=== PATIENT | male | born 1970 | race Two or more races ===

== ENCOUNTER 2019-07-01 14:56 | Inpatient (IN) | payer OTHER ==
--- NOTE | 2019-07-01 15:35 | BHS.RME ---
Substance Use & Tx History - Substance Use History Alcohol Substance amount: beer: 10 x 24 ounce, Vodka: up to one pint Frequency of use: Daily Substance route: Oral Date of Last Use: 07/01/19 Physical/Psych/Mental Status - Behavior Eye Contact: Normal - Cooperativeness Cooperativeness: Cooperative - Thinking Thought Processes: Loosened - Physical Health Problems Is patient presently having any pain?: Yes (fell last night, struck left knee) Does patient presently have any injuries (include location): Yes (scraped left knee "real bad") Does patient currently have a fever: No CIWA Nausea/Vomitin-Mild Nausea/No Vomiting Muscle Tremors: 3 Anxiety: 2 Agitation: 2 Paroxysmal Sweats: No Perspiration Orientation: 0-Oriented Tacttile Disturbances: 0-None Auditory Disturbances: 2-Mild Harshness/Frighten Visual Disturbances: 2-Mild Sensitivity Headache: 0-None Present CIWA-Ar Total Score: 12
[2019-07-01 17:53] VITALS: BMI 35.1
--- NOTE | 2019-07-01 18:59 | HP ---
CIWA Score Nausea/Vomitin-Mild Nausea/No Vomiting Muscle Tremors: 3 Anxiety: 2 Agitation: 2 Paroxysmal Sweats: No Perspiration Orientation: 0-Oriented Tacttile Disturbances: 0-None Auditory Disturbances: 2-Mild Harshness/Frighten Visual Disturbances: 2-Mild Sensitivity Headache: 0-None Present CIWA-Ar Total Score: 12 - Admission Criteria OASAS Guidelines: Admission for Medically Managed Detox: Requires at least one of the followin. CIWA greater than 12 2. Seizures within the past 24 hours 3. Delirium tremens within the past 24 hours 4. Hallucinations within the past 24 hours 5. Acute intervention needed for co occurring medical disorder 6. Acute intervention needed for co occurring psychiatric disorder 7. Severe withdrawal that cannot be handled at a lower level of care (continued vomiting, continued diarrhea, abnormal vital signs) requiring intravenous medication and/or fluids 8. Patient presents the following: CIWA greater than 12 Admission Criteria Met: Admission criteria met Admitting History and Physical - Smoking History Smoking history: Current every day smoker Have you smoked in the past 12 months: Yes Aproximately how many cigarettes per day: 20 - Alcohol/Substance Use Hx Alcohol Use: Yes (reports drinking daily vodka.) Admission [facility] Chief Complaint: alcohol detox Allergies/Adverse Reactions: Allergies Allergy/AdvReac Type Severity Reaction Status Date / Time No Known Allergies Allergy Verified 07/01/19 18:53 History of Present Illness: 48 yo male with schizohrenia, DM, HTN, neuropathy, 2 episodes of pancreatitis, cirrhosis resident of an [facility] living, states he has been drinking continuously for the prior 6 months, requesting detox. Pt was brought in by sister. Pt states he feels like he is in withdrawal. Alcohol- 24 oz can 10 beers/day, vodka 1/2 pint/day. no h/o seizures/DT's denies other drugs Utox- neg, MANISH-0.45 ISTOP- neg for controlled substances - Ebola screening Have you traveled outside of the country in the last 21 days: No Have you had contact with anyone from an Ebola affected area: No Have you been sick,other than usual withdrawal symptoms: No Do you have a fever: No - Review of Systems Constitutional: Other (not feeling good) EENT: reports: No Symptoms Reported Respiratory: reports: No Symptoms reported Cardiac: reports: No Symptoms Reported GI: reports: No Symptoms Reported : reports: No Symptoms Reported Musculoskeletal: reports: No Symptoms Reported Integumentary: reports: No Symptoms Reported (knee scrape- left, hit corner of bed), Other Neuro: reports: No Symptoms reported Endocrine: reports: No Symptoms Reported Hematology: reports: No Symptoms Reported Psychiatric: reports: Depressed Patient History - Patient Medical History Hx Anemia: No Hx Asthma: No Hx Chronic Obstructive Pulmonary Disease (COPD): No Hx Cancer: No Hx Cardiac Disorders: No Hx Congestive Heart Failure: No Hx Hypertension: Yes Hx Hypercholesterolemia: Yes (PER HX--NO MEDS) Hx Pacemaker: No HX Cerebrovascular Accident: No Hx Seizures: No Hx Dementia: No Hx Diabetes: Yes Hx Gastrointestinal Disorders: Yes (h/o pancreatitis) Hx Liver Disease: Yes (cirrhosis) Hx Genitourinary Disorders: No Hx Sexually Transmitted Disorders: No Hx Renal Disease (ESRD): No Hx Thyroid Disease: No Hx Human Immunodeficiency Virus (HIV): No (NEGATIVE HX) Hx Hepatitis C: No Hx Depression: Yes Hx Suicide Attempt: Yes (1995) Hx Bipolar Disorder: Yes Hx Schizophrenia: Yes (schizophrenia) Other Medical History: neuropathy - Patient Surgical History Past Surgical History: Yes Hx Neurologic Surgery: No Hx Cataract Extraction: No Hx Cardiac Surgery: No Hx Lung Surgery: No Hx Breast Surgery: No Hx Breast Biopsy: No Hx Abdominal Surgery: Yes (LEFT INGUINAL HERNIA REPAIR IN THE ) Hx Appendectomy: No Hx Cholecystectomy: No Hx Genitourinary Surgery: No Hx Section: No Hx Orthopedic Surgery: Yes (DUE TO RIGHT WRIST FX IN 1986 OR 1987) Anesthesia Reaction: No - PPD History Documented Results: Negative w/o proof Date: 06/16/13 Results: 0mm - Smoking Cessation Smoking history: Current every day smoker Have you smoked in the past 12 months: Yes Aproximately how many cigarettes per day: 20 Cigars Per Day: 0 Hx Chewing Tobacco Use: No Initiated information on smoking cessation: Yes 'Breaking Loose' booklet given: 07/01/19 Admission Physical Exam BHS - Vital Signs Vital Signs: Vital Signs - 24 hr 07/01/19 17:49 Temperature 98.7 F Pulse Rate 75 Respiratory 18 Rate Blood Pressure 142/79 - Physical General Appearance: Yes: Anxious HEENTM: Yes: Within Normal Limits Respiratory: Yes: Within Normal Limits, Lungs Clear Neck: Yes: Within Normal Limits Cardiology: Yes: Within Normal Limits, Regular Rate Abdominal: Yes: Distended Musculoskeletal: Yes: Within Normal Limits Extremities: Yes: Within Normal Limits Neurological: Yes: Within Normal Limits Integumentary: Yes: Within Normal Limits Lymphatic: Yes: Within Normal Limits - Diagnostic (1) Depression Current Visit: Yes Status: Acute (2) Schizoaffective disorder Current Visit: Yes Status: Acute (3) Diabetes Current Visit: Yes Status: Acute (4) H/O acute pancreatitis Current Visit: Yes Status: Acute (5) Cirrhosis Current Visit: Yes Status: Acute (6) Alcohol dependence Current Visit: No Status: Acute (7) Essential (primary) hypertension Current Visit: No Status: Acute Breathalyzer - Breathalyzer Breathalyzer: 0.024 Urine Drug Screen - Test Device Lot number: [id number] Expiration date: 04/12/21 - Control Is test valid?: Yes - Results Drug screen NEGATIVE: Yes Inpatient Rehab Admission - Rehab Decision to Admit Inpatient rehab admission?: No
[2019-07-01] MEDS ORDERED: ONDANSETRON *ODT* 4 MG TABLET SL PRN (19:06)
[2019-07-01] MEDS ORDERED: MAGNESIUM HYDROX 2400MG/30ML ORAL SUSPENSION 30 ML CUP PO PRN (19:06)
[2019-07-01] MEDS ORDERED: MAGNESIUM CITRATE 300 ML BOTTLE PO PRN (19:06)
[2019-07-01] MEDS ORDERED: BISMUTH SUBSALICYLATE 524 MG/30 ML UD PO PRN (19:06)
[2019-07-01] MEDS ORDERED: hydrOXYzine PAMOATE 25 MG CAPSULE (FP) PO PRN (19:06)
[2019-07-01] MEDS ORDERED: MAG HYDROX/AL HYDROX/SIMETH 30 ML UNIT-DOSE CUP PO PRN (19:06)
[2019-07-01] MEDS ORDERED: ACETAMINOPHEN 325 MG TABLET (FP) PO PRN ×2 (19:06)
[2019-07-01] MEDS ORDERED: METHOCARBAMOL 500 MG TABLET PO PRN (19:06)
[2019-07-01] MEDS ORDERED: IBUPROFEN 400 MG TABLET (FP) PO PRN (19:06)
[2019-07-01] MEDS ORDERED: MENTHOL/PHENOL 1 EACH UD MM PRN (19:06)
[2019-07-01] MEDS ORDERED: ALBUTEROL SO4 HFA INHALER IH PRN (19:15)
[2019-07-01] MEDS ORDERED: LORazepam 1 MG TABLET PO PRN (19:28)
[2019-07-01] MEDS ORDERED: LORazepam 2 MG TABLET PO ONE (19:45)
[2019-07-01] MEDS ORDERED: NICOTINE 21 MG/24 HOURS TOPICAL PATCH TD ONE (19:45)
[2019-07-01] MEDS ORDERED: NICOTINE 21 MG/24 HOURS TOPICAL PATCH TD SCH (20:00)
[2019-07-01] MEDS ORDERED: MELATONIN 5 MG TABLETS PO PRN (22:00)
[2019-07-01] MEDS ORDERED: INSULIN SLIDING SCALE (NOVOLOG) 1 VIAL SQ ONE (22:08)
[2019-07-01] MEDS: FAMOTIDINE 20 MG TABLET PO SCH (22:12)
[2019-07-01] MEDS: THIAMINE HCL 100 MG TABLET (FP) PO SCH (22:12)
[2019-07-01] MEDS: GABAPENTIN 300 MG CAPSULE PO SCH (22:12)
[2019-07-01] MEDS: LORazepam 2 MG TABLET PO SCH (22:12)
[2019-07-01] MEDS: INSULIN (LEVEMIR) 100 UNITS/ML UNITS SQ SCH (22:15)
[2019-07-01] MEDS: INSULIN SLIDING SCALE (NOVOLOG) 1 VIAL SQ SCH (22:16)
[2019-07-01] MEDS: LACTULOSE 20 GM/30 ML UDC (FOR ORAL USE ONLY) PO SCH (22:16)
[2019-07-01] MEDS: OLANZapine 10 MG TABLET PO SCH (23:24)
[2019-07-01] MEDS: RIFAXIMIN 550 MG TABLET (UD) PO SCH (23:25)
[2019-07-02] MEDS: LORazepam 2 MG TABLET PO SCH ×4 (06:33→22:30)
[2019-07-02] MEDS: GABAPENTIN 300 MG CAPSULE PO SCH ×3 (06:33→22:30)
[2019-07-02] MEDS: INSULIN SLIDING SCALE (NOVOLOG) 1 VIAL SQ SCH ×4 (08:03→22:49)
--- NOTE | 2019-07-02 09:17 | CONSULT ---
[facility] Psychiatric Consult - Data Date of interview: 07/02/19 Admission source: Self-referred Identifying data: Mr Vallejo is a 48 years old single [place]-born male, unemployed receiving SSI, living in [facility] seeking detox treatment for alcohol Substance Abuse History: Reports history of alcohol use. Refer to addiction counselor's summary for further information Medical History: Significant for hypertension, type 2 diabetes mellitus, neuropathy, cirhosis of the liver, history of pancreatitis, left inguinal hernia repair and orthosurgery for fracture right wrist in 1986. Smokes cigarettes 1 ppd Psychiatric History: Patient is known for two previous admissions to this facility in late May 2013(back to back admissions to detox & rehab). He is moderately sedated with poor communication. He reports his first psychiatric contact occured in his mid 's when he was admitted to [facility], diagnosed with Schizoaffective disorder and started on psychotropic medications. Reports multiple subsequent psychiatric hospitalizations to various facilities including [facility] and [facility]. Reports that he sees psychiatrist on site at [facility]. During his admission to this facility back in May 2013, He reported seeing Dr Almaguer from [facility] and was prescribed Depakote 500 mg po bid, Prolixin 5 mg po bid, Cogentin 1 mg po bid. Now he only recolls being prescribed Gabapentin. According to home list, he is prescribed [place] 300 mg/ bid, Gabapentin 300 mg/tid and Zyprexa 10 mg/hs. This is confirmed by contacting [facility] at [address] [place] [address]. According to staff, he is seen monthly on site by Ms Patricia NP. Reportedly he had one suicidal attempt in 1995 via overdose of heroin. At present, he denies experiencing psychotic. manic or depresive symptoms, S/H ideations. However, he is moderately drowsy and reports feeling anxious and sleeping poorly Physical/Sexual Abuse/Trauma History: Topic not addressed due to patient's drowsiness Mental Status Exam - Mental Status Exam Alert and Oriented to: Time (does not know day(Saturdy) and date(second)), Place , Person Cognitive Function: Grossly Intact Patient Appearance: Disheveled Mood: Anxious (mildly) Affect: Appropriate Patient Behavior: Cooperative Speech Pattern: Clear Voice Loudness: Normal Thought Process: Intact Thought Disorder: Not Present Hallucinations: Denies Homicidal Ideation: Denies Insight/Judgement: Poor Sleep: Poorly Appetite: Fair Muscle strength/Tone: Normal Gait/Station: Normal Psychiatric Findings - Problem List ([place] 1, 2,3) (1) Schizoaffective disorder Current Visit: Yes Status: Chronic (2) Paranoid schizophrenia Current Visit: No Status: Ruled-out (3) Alcohol-induced anxiety disorder Current Visit: Yes Status: Acute (4) Alcohol-induced sleep disorder Current Visit: Yes Status: Acute (5) Alcohol dependence, uncomplicated Current Visit: Yes Status: Acute (6) Nicotine dependence Current Visit: Yes Status: Chronic (7) Cirrhosis Current Visit: Yes Status: Chronic (8) Diabetes Current Visit: Yes Status: Chronic (9) H/O acute pancreatitis Current Visit: Yes Status: Resolved (10) Essential (primary) hypertension Current Visit: No Status: Chronic (11) Diabetic neuropathy Current Visit: Yes Status: Chronic - Initial Treatment Plan Initial Treatment Plan: 1) Continue Zyprexa 10 mg po HS, [place] 300 mg po BID and Gabapentin 300 mg po TID. 2) [place] serum level. 3) Continue inpatient detoxification
[2019-07-02 09:43] LABS: HEMATOCRIT 44.6 % (35.4-49); HEMOGLOBIN 14.9 GM/dL (11.7-16.9); MCH 36.4 pg (25.7-33.7); MCHC 33.4 g/dl (32.0-35.9); MEAN PLT VOLUME 9.4 fl (7.5-11.1); PLATELET COUNT 104 K/MM3 (134-434); RBC 4.09 M/mm3 (4.00-5.60); RDW 15.6 % (11.9-15.9); WHITE BLOOD COUNT 14.4 K/mm3 (4.0-10.0)
[2019-07-02] MEDS ORDERED: MAGNESIUM OXIDE 400 MG TABLET (FP) PO SCH (10:00)
[2019-07-02] MEDS ORDERED: NICOTINE 21 MG/24 HOURS TOPICAL PATCH TD SCH (10:00)
[2019-07-02 10:02] LABS: ALBUMIN 3.1 g/dl (3.4-5.0); BILIRUBIN,TOTAL 3.7 mg/dL (0.2-1); CALCIUM 8.7 mg/dL (8.5-10.1); CREATININE 0.7 mg/dL (0.55-1.3); POTASSIUM 3.5 mmol/L (3.5-5.1); TOT PROT 7.3 g/dl (6.4-8.2)
[2019-07-02] MEDS: HYDROCHLOROTHIAZIDE 12.5 MG CAPSULE (FP) PO SCH (10:57)
[2019-07-02] MEDS: FAMOTIDINE 20 MG TABLET PO SCH ×2 (10:57→22:30)
[2019-07-02] MEDS: LACTULOSE 20 GM/30 ML UDC (FOR ORAL USE ONLY) PO SCH ×2 (10:58→22:50)
[2019-07-02] MEDS: RIFAXIMIN 550 MG TABLET (UD) PO SCH ×2 (10:58→23:48)
[2019-07-02] MEDS: POTASSIUM CHLORIDE TABS 20 MEQ TABLET.ER (FP) PO SCH (10:58)
[2019-07-02] MEDS: NICOTINE 21 MG/24 HOURS TOPICAL PATCH TD SCH (11:00)
[2019-07-02] MEDS: FOLIC ACID 1 MG TABLET (FP) PO SCH (11:33)
[2019-07-02] MEDS: CYANOCOBALAMIN 1,000 MCG TABLET (FP) PO SCH (11:34)
[2019-07-02] MEDS: PRENATAL VITAMINS W/ FOLIC ACID TABLET (FP) PO SCH (11:34)
[2019-07-02] MEDS: LITHIUM CARBONATE 300 MG CAPSULE (FP) PO SCH ×2 (11:35→22:30)
--- NOTE | 2019-07-02 12:11 | EKG ---
Test Reason : Blood Pressure : / mmHG Vent. Rate : 078 BPM Atrial Rate : 078 BPM P-R Int : 166 ms QRS Dur : 090 ms QT Int : 428 ms P-R-T Axes : 072 -04 019 degrees QTc Int : 487 ms NORMAL SINUS RHYTHM POSSIBLE LEFT ATRIAL ENLARGEMENT NONSPECIFIC ST ABNORMALITY PROLONGED QT ABNORMAL ECG NO PREVIOUS ECGS AVAILABLE Confirmed by HENNA ANDREWS MD ([id number]) on 07/02/2019 12:11:40 PM Referred By: NORA Confirmed By:HENNA ANDREWS MD
--- NOTE | 2019-07-02 13:53 | PN ---
S CIWA - CIWA Score Nausea/Vomitin-Mild Nausea/No Vomiting Muscle Tremors: 2 Anxiety: 2 Agitation: 2 Paroxysmal Sweats: No Perspiration Orientation: 0-Oriented Tacttile Disturbances: 1-Very Mild Itch/Numbness Auditory Disturbances: 0-None Visual Disturbances: 0-None Headache: 2-Mild CIWA-Ar Total Score: 10 S Progress Note (SOAP) Subjective: alert,irritable,anxious,interrupted sleep,tremor Objective: 07/02/19 13:52 Vital Signs Temperature 98.4 F 07/02/19 09:09 Pulse Rate 80 07/02/19 09:09 Respiratory Rate 18 07/02/19 09:09 Blood Pressure 150/85 07/02/19 09:09 O2 Sat by Pulse Oximetry (%) Laboratory Last Values WBC 14.4 K/mm3 (4.0-10.0) H 07/02/19 07:25 RBC 4.09 M/mm3 (4.00-5.60) 07/02/19 07:25 Hgb 14.9 GM/dL (11.7-16.9) 07/02/19 07:25 Hct 44.6 % (35.4-49) 07/02/19 07:25 MCV 109.0 fl (80-96) H 07/02/19 07:25 MCH 36.4 pg (25.7-33.7) H 07/02/19 07:25 MCHC 33.4 g/dl (32.0-35.9) 07/02/19 07:25 RDW 15.6 % (11.9-15.9) D 07/02/19 07:25 Plt Count 104 K/MM3 (134-434) L D 07/02/19 07:25 MPV 9.4 fl (7.5-11.1) D 07/02/19 07:25 Sodium 140 mmol/L (136-145) 07/02/19 07:25 Potassium 3.5 mmol/L (3.5-5.1) 07/02/19 07:25 Chloride 105 mmol/L (98-107) 07/02/19 07:25 Carbon Dioxide 28 mmol/L (21-32) 07/02/19 07:25 Anion Gap 6 MMOL/L (8-16) L 07/02/19 07:25 BUN 9.0 mg/dL (7-18) 07/02/19 07:25 Creatinine 0.7 mg/dL (0.55-1.3) 07/02/19 07:25 Est GFR (CKD-EPI)AfAm 128.43 07/02/19 07:25 Est GFR (CKD-EPI)NonAf 110.81 07/02/19 07:25 POC Glucometer 280 UNITS (80-120) 07/02/19 11:10 Random Glucose 284 mg/dL (74-106) H 07/02/19 07:25 Calcium 8.7 mg/dL (8.5-10.1) 07/02/19 07:25 Total Bilirubin 3.7 mg/dL (0.2-1) H 07/02/19 07:25 AST 82 U/L (15-37) H 07/02/19 07:25 ALT 59 U/L (13-61) 07/02/19 07:25 Alkaline Phosphatase 290 U/L (45-117) H 07/02/19 07:25 Total Protein 7.3 g/dl (6.4-8.2) 07/02/19 07:25 Albumin 3.1 g/dl (3.4-5.0) L 07/02/19 07:25 RPR Titer Nonreactive (NONREACTIVE) 07/02/19 07:25 Assessment: 07/02/19 13:52 withdrawal symptom Plan: continue detox ativan regimen,encourage oral fluid,repeat cmp in am
[2019-07-02] MEDS ORDERED: INSULIN SLIDING SCALE (NOVOLOG) 1 VIAL SQ ONE ×2 (17:15→22:02)
[2019-07-02] MEDS: THIAMINE HCL 100 MG TABLET (FP) PO SCH (22:30)
[2019-07-02] MEDS: OLANZapine 10 MG TABLET PO SCH (22:31)
[2019-07-02] MEDS: INSULIN (LEVEMIR) 100 UNITS/ML UNITS SQ SCH (22:49)
[2019-07-03] MEDS: GABAPENTIN 300 MG CAPSULE PO SCH ×3 (06:39→22:24)
[2019-07-03] MEDS: LORazepam 1 MG TABLET PO SCH ×4 (06:39→22:24)
[2019-07-03] MEDS: INSULIN SLIDING SCALE (NOVOLOG) 1 VIAL SQ SCH ×4 (08:00→21:05)
[2019-07-03] MEDS ORDERED: INSULIN SLIDING SCALE (NOVOLOG) 1 VIAL SQ ONE ×2 (08:51→11:41)
[2019-07-03 10:01] LABS: ALBUMIN 3.3 g/dl (3.4-5.0); BILIRUBIN,TOTAL 3.4 mg/dL (0.2-1); BLOOD UREA NITROGEN 10.6 mg/dL (7-18); CALCIUM 8.6 mg/dL (8.5-10.1); CREATININE 0.7 mg/dL (0.55-1.3); POTASSIUM 3.6 mmol/L (3.5-5.1); TOT PROT 7.2 g/dl (6.4-8.2)
[2019-07-03] MEDS: RIFAXIMIN 550 MG TABLET (UD) PO SCH ×2 (11:25→22:24)
[2019-07-03] MEDS: LITHIUM CARBONATE 300 MG CAPSULE (FP) PO SCH ×2 (11:25→22:24)
[2019-07-03] MEDS: PRENATAL VITAMINS W/ FOLIC ACID TABLET (FP) PO SCH (11:25)
[2019-07-03] MEDS: HYDROCHLOROTHIAZIDE 12.5 MG CAPSULE (FP) PO SCH (11:29)
[2019-07-03] MEDS: NICOTINE 21 MG/24 HOURS TOPICAL PATCH TD SCH (11:30)
[2019-07-03] MEDS: POTASSIUM CHLORIDE TABS 20 MEQ TABLET.ER (FP) PO SCH (11:30)
[2019-07-03] MEDS: FAMOTIDINE 20 MG TABLET PO SCH ×2 (11:30→22:24)
[2019-07-03] MEDS ORDERED: INSULIN (LEVEMIR) 100 UNITS/ML UNITS SQ SCH (12:58)
--- NOTE | 2019-07-03 12:58 | PN ---
S CIWA - CIWA Score Nausea/Vomitin-Mild Nausea/No Vomiting Muscle Tremors: 2 Anxiety: 2 Agitation: 3 Paroxysmal Sweats: 1-Minimal Palms Moist Orientation: 0-Oriented Tacttile Disturbances: 0-None Auditory Disturbances: 0-None Visual Disturbances: 0-None Headache: 1-Very Mild CIWA-Ar Total Score: 10 BHS Progress Note (SOAP) Subjective: pt admitted for AUD, with h/o cirrhosis, DM. O: Vital Signs - 24 hr 07/02/19 07/02/19 07/02/19 13:13 19:25 20:48 Temperature 98.4 F 98.1 F 99.9 F H Pulse Rate 76 83 85 Respiratory 20 18 18 Rate Blood Pressure 149/82 155/78 157/85 07/03/19 07/03/19 07/03/19 00:48 04:25 06:30 Temperature 98.2 F Pulse Rate 82 Respiratory 18 18 17 Rate Blood Pressure 119/70 07/03/19 10:12 Temperature 97.1 F L Pulse Rate 76 Respiratory 18 Rate Blood Pressure 158/96 Laboratory Tests 07/01/19 07/02/19 07/02/19 22:04 06:31 07:25 WBC 14.4 H RBC 4.09 Hgb 14.9 Hct 44.6 MCV 109.0 H MCH 36.4 H MCHC 33.4 RDW 15.6 D Plt Count 104 L D MPV 9.4 D Sodium Potassium Chloride Carbon Dioxide Anion Gap BUN Creatinine Est GFR (CKD-EPI)AfAm Est GFR (CKD-EPI)NonAf POC Glucometer 490 286 Random Glucose Calcium Total Bilirubin AST ALT Alkaline Phosphatase Total Protein Albumin [place] RPR Titer 07/02/19 07/02/19 07/02/19 07:25 07:25 07:25 WBC RBC Hgb Hct MCV MCH MCHC RDW Plt Count MPV Sodium 140 Potassium 3.5 Chloride 105 Carbon Dioxide 28 Anion Gap 6 L BUN 9.0 Creatinine 0.7 Est GFR (CKD-EPI)AfAm 128.43 Est GFR (CKD-EPI)NonAf 110.81 POC Glucometer Random Glucose 284 H Calcium 8.7 Total Bilirubin 3.7 H AST 82 H ALT 59 Alkaline Phosphatase 290 H Total Protein 7.3 Albumin 3.1 L [place] 0.4 L RPR Titer Nonreactive 07/02/19 07/02/19 07/02/19 11:10 16:43 19:28 WBC RBC Hgb Hct MCV MCH MCHC RDW Plt Count MPV Sodium Potassium Chloride Carbon Dioxide Anion Gap BUN Creatinine Est GFR (CKD-EPI)AfAm Est GFR (CKD-EPI)NonAf POC Glucometer 280 337 363 Random Glucose Calcium Total Bilirubin AST ALT Alkaline Phosphatase Total Protein Albumin [place] RPR Titer 07/02/19 07/03/19 07/03/19 21:51 06:41 07:00 WBC RBC Hgb Hct MCV MCH MCHC RDW Plt Count MPV Sodium 140 Potassium 3.6 Chloride 105 Carbon Dioxide 28 Anion Gap 6 L BUN 10.6 Creatinine 0.7 Est GFR (CKD-EPI)AfAm 128.43 Est GFR (CKD-EPI)NonAf 110.81 POC Glucometer 361 268 Random Glucose 291 H Calcium 8.6 Total Bilirubin 3.4 H AST 84 H ALT 53 Alkaline Phosphatase 288 H Total Protein 7.2 Albumin 3.3 L [place] RPR Titer 07/03/19 11:38 WBC RBC Hgb Hct MCV MCH MCHC RDW Plt Count MPV Sodium Potassium Chloride Carbon Dioxide Anion Gap BUN Creatinine Est GFR (CKD-EPI)AfAm Est GFR (CKD-EPI)NonAf POC Glucometer 401 Random Glucose Calcium Total Bilirubin AST ALT Alkaline Phosphatase Total Protein Albumin [place] RPR Titer high bili, high BS a/p: AUD continute detox protocol cirrhosis- high bili: repeat labs tomorrow DM: continue f/s and insulin with SS coverage
[2019-07-03] MEDS: FOLIC ACID 1 MG TABLET (FP) PO SCH (13:52)
[2019-07-03] MEDS: CYANOCOBALAMIN 1,000 MCG TABLET (FP) PO SCH (13:53)
[2019-07-03] MEDS: LACTULOSE 20 GM/30 ML UDC (FOR ORAL USE ONLY) PO SCH ×2 (13:53→22:23)
[2019-07-03] MEDS: OLANZapine 10 MG TABLET PO SCH (22:24)
[2019-07-03] MEDS: THIAMINE HCL 100 MG TABLET (FP) PO SCH (22:24)
[2019-07-04] MEDS ORDERED: LORazepam 0.5 MG TABLET PO PRN
[2019-07-04] MEDS ORDERED: LORazepam 0.5 MG TABLET PO SCH (05:00)
[2019-07-04] MEDS: GABAPENTIN 300 MG CAPSULE PO SCH (06:42)
[2019-07-04] MEDS ORDERED: INSULIN SLIDING SCALE (NOVOLOG) 1 VIAL SQ ONE (06:45)
[2019-07-04] MEDS: INSULIN SLIDING SCALE (NOVOLOG) 1 VIAL SQ SCH (06:47)
[2019-07-04 09:55] VITALS: BP 140/76; PULSE 84; TEMP 98.4
[2019-07-04] MEDS: LITHIUM CARBONATE 300 MG CAPSULE (FP) PO SCH (10:11)
[2019-07-04] MEDS: FOLIC ACID 1 MG TABLET (FP) PO SCH (10:11)
[2019-07-04] MEDS: POTASSIUM CHLORIDE TABS 20 MEQ TABLET.ER (FP) PO SCH (10:11)
[2019-07-04] MEDS: HYDROCHLOROTHIAZIDE 12.5 MG CAPSULE (FP) PO SCH (10:11)
[2019-07-04] MEDS: RIFAXIMIN 550 MG TABLET (UD) PO SCH (10:11)
[2019-07-04] MEDS: PRENATAL VITAMINS W/ FOLIC ACID TABLET (FP) PO SCH (10:11)
[2019-07-04] MEDS: FAMOTIDINE 20 MG TABLET PO SCH (10:12)
[2019-07-04] MEDS: NICOTINE 21 MG/24 HOURS TOPICAL PATCH TD SCH (10:12)
[2019-07-04] MEDS: LACTULOSE 20 GM/30 ML UDC (FOR ORAL USE ONLY) PO SCH (10:12)
[2019-07-04 11:42] LABS: BASO % 0.8 % (0-2.0); EOS % 3.6 % (0-4.5); HEMATOCRIT 46.7 % (35.4-49); HEMOGLOBIN 15.5 GM/dL (11.7-16.9); MCH 36.7 pg (25.7-33.7); MCHC 33.1 g/dl (32.0-35.9); MEAN CELL VOLUME 110.9 fl (80-96); MEAN PLT VOLUME 9.9 fl (7.5-11.1); MONO % 8.8 % (3.8-10.2); NEUT % 78.8 % (42.8-82.8); PLATELET COUNT 104 K/MM3 (134-434); RBC 4.21 M/mm3 (4.00-5.60); RDW 15.6 % (11.9-15.9); WHITE BLOOD COUNT 13.9 K/mm3 (4.0-10.0)
[2019-07-04 11:49] LABS: ALBUMIN 3.2 g/dl (3.4-5.0); BILIRUBIN,TOTAL 3.2 mg/dL (0.2-1); BLOOD UREA NITROGEN 8.8 mg/dL (7-18); CALCIUM 9.2 mg/dL (8.5-10.1); CREATININE 0.6 mg/dL (0.55-1.3); POTASSIUM 3.4 mmol/L (3.5-5.1); TOT PROT 7.3 g/dl (6.4-8.2)
[2019-07-04 13:11] LABS: ANISOCYTOSIS 1+; MACROCYTOSIS 1+; PLATELET ESTIMATE DECREASED
--- NOTE | 2019-07-04 14:05 | DS ---
[facility] Detox Discharge Summary Admission Date: 07/01/19 Discharge Date: 07/04/19 - History Present History: Alcohol Dependence - Physical Exam Results Vital Signs: Vital Signs Temperature 98.4 F 07/04/19 09:55 Pulse Rate 84 07/04/19 09:55 Respiratory Rate 17 07/04/19 09:55 Blood Pressure 140/76 07/04/19 09:55 O2 Sat by Pulse Oximetry (%) Laboratory Tests 07/01/19 07/02/19 07/02/19 22:04 06:31 07:25 WBC 14.4 H RBC 4.09 Hgb 14.9 Hct 44.6 MCV 109.0 H MCH 36.4 H MCHC 33.4 RDW 15.6 D Plt Count 104 L D MPV 9.4 D Absolute Neuts (auto) Neutrophils % Lymphocytes % Monocytes % Eosinophils % Basophils % Nucleated RBC % Hypochromia Platelet Estimate Polychromasia Poikilocytosis Anisocytosis Microcytosis Macrocytosis Sodium Potassium Chloride Carbon Dioxide Anion Gap BUN Creatinine Est GFR (CKD-EPI)AfAm Est GFR (CKD-EPI)NonAf POC Glucometer 490 286 Random Glucose Calcium Total Bilirubin AST ALT Alkaline Phosphatase Total Protein Albumin [place] RPR Titer 07/02/19 07/02/19 07/02/19 07:25 07:25 07:25 WBC RBC Hgb Hct MCV MCH MCHC RDW Plt Count MPV Absolute Neuts (auto) Neutrophils % Lymphocytes % Monocytes % Eosinophils % Basophils % Nucleated RBC % Hypochromia Platelet Estimate Polychromasia Poikilocytosis Anisocytosis Microcytosis Macrocytosis Sodium 140 Potassium 3.5 Chloride 105 Carbon Dioxide 28 Anion Gap 6 L BUN 9.0 Creatinine 0.7 Est GFR (CKD-EPI)AfAm 128.43 Est GFR (CKD-EPI)NonAf 110.81 POC Glucometer Random Glucose 284 H Calcium 8.7 Total Bilirubin 3.7 H AST 82 H ALT 59 Alkaline Phosphatase 290 H Total Protein 7.3 Albumin 3.1 L [place] 0.4 L RPR Titer Nonreactive 07/02/19 07/02/19 07/02/19 11:10 16:43 19:28 WBC RBC Hgb Hct MCV MCH MCHC RDW Plt Count MPV Absolute Neuts (auto) Neutrophils % Lymphocytes % Monocytes % Eosinophils % Basophils % Nucleated RBC % Hypochromia Platelet Estimate Polychromasia Poikilocytosis Anisocytosis Microcytosis Macrocytosis Sodium Potassium Chloride Carbon Dioxide Anion Gap BUN Creatinine Est GFR (CKD-EPI)AfAm Est GFR (CKD-EPI)NonAf POC Glucometer 280 337 363 Random Glucose Calcium Total Bilirubin AST ALT Alkaline Phosphatase Total Protein Albumin [place] RPR Titer 07/02/19 07/03/19 07/03/19 21:51 06:41 07:00 WBC RBC Hgb Hct MCV MCH MCHC RDW Plt Count MPV Absolute Neuts (auto) Neutrophils % Lymphocytes % Monocytes % Eosinophils % Basophils % Nucleated RBC % Hypochromia Platelet Estimate Polychromasia Poikilocytosis Anisocytosis Microcytosis Macrocytosis Sodium 140 Potassium 3.6 Chloride 105 Carbon Dioxide 28 Anion Gap 6 L BUN 10.6 Creatinine 0.7 Est GFR (CKD-EPI)AfAm 128.43 Est GFR (CKD-EPI)NonAf 110.81 POC Glucometer 361 268 Random Glucose 291 H Calcium 8.6 Total Bilirubin 3.4 H AST 84 H ALT 53 Alkaline Phosphatase 288 H Total Protein 7.2 Albumin 3.3 L [place] RPR Titer 07/03/19 07/03/19 07/03/19 11:38 16:27 20:42 WBC RBC Hgb Hct MCV MCH MCHC RDW Plt Count MPV Absolute Neuts (auto) Neutrophils % Lymphocytes % Monocytes % Eosinophils % Basophils % Nucleated RBC % Hypochromia Platelet Estimate Polychromasia Poikilocytosis Anisocytosis Microcytosis Macrocytosis Sodium Potassium Chloride Carbon Dioxide Anion Gap BUN Creatinine Est GFR (CKD-EPI)AfAm Est GFR (CKD-EPI)NonAf POC Glucometer 401 418 307 Random Glucose Calcium Total Bilirubin AST ALT Alkaline Phosphatase Total Protein Albumin [place] RPR Titer 07/04/19 07/04/19 07/04/19 06:33 07:25 07:25 WBC 13.9 H RBC 4.21 Hgb 15.5 Hct 46.7 MCV 110.9 H MCH 36.7 H MCHC 33.1 RDW 15.6 Plt Count 104 L MPV 9.9 Absolute Neuts (auto) 10.9 H Neutrophils % 78.8 Lymphocytes % 8.0 Monocytes % 8.8 Eosinophils % 3.6 Basophils % 0.8 Nucleated RBC % 0 Hypochromia 0 Platelet Estimate Decreased Polychromasia 2+ Poikilocytosis 0 Anisocytosis 1+ Microcytosis 1+ Macrocytosis 1+ Sodium 139 Potassium 3.4 L Chloride 105 Carbon Dioxide 29 Anion Gap 5 L BUN 8.8 Creatinine 0.6 Est GFR (CKD-EPI)AfAm 136.83 Est GFR (CKD-EPI)NonAf 118.06 POC Glucometer 257 Random Glucose 289 H Calcium 9.2 Total Bilirubin 3.2 H AST 91 H ALT 56 Alkaline Phosphatase 280 H Total Protein 7.3 Albumin 3.2 L [place] RPR Titer Vital Signs Temperature 98.4 F 07/04/19 09:55 Pulse Rate 84 07/04/19 09:55 Respiratory Rate 17 07/04/19 09:55 Blood Pressure 140/76 07/04/19 09:55 O2 Sat by Pulse Oximetry (%) ROS: patient states " I feel better. I am going to sign out today because I want to go home. I will not drink" PE alert and oriented x 3 skin warm and dry +perrla, eoms intact bl sclera ictheric gi softly distended ext full rom, no tremors denies si/hi alcohol dependence elevated wbc Patient encouraged to stay in treatment and explained risk factors of reoccurrence of alcohol use with signing out AMA. Patient also informed his WBC count was elevated and that he required further medical work up. Patient refused to stay in treatment. He insisted on signing out AMA despite interventions. - Medication Discharge Medications: Ambulatory Orders Albuterol Sulfate Inhaler - [Ventolin Hfa Inhaler -] 2 inh PO Q6H 07/01/19 Cyanocobalamin [Vitamin B12 -] 1,000 mcg PO DAILY 07/01/19 Folic Acid - 1 mg PO DAILY 07/01/19 Gabapentin [Neurontin -] 300 mg PO TID 07/01/19 Hydrochlorothiazide [Hctz -] 12.5 mg PO DAILY 07/01/19 Insulin Glargine,Hum.rec.anlog [Lantus Solostar] 24 unit SQ HS 07/01/19 Insulin Lispro [Humalog] 100 unit SQ TID 07/01/19 Lactulose [Cephulac -] 10 gm PO BID 07/01/19 [place] Carbonate [Eskalith -] 300 mg PO BID 07/01/19 Magnesium Oxide 400 mg PO DAILY 07/01/19 Naltrexone HCl [Revia -] 50 mg PO DAILY 07/01/19 Olanzapine [Zyprexa -] 10 mg PO HS 07/01/19 Potassium Chloride 20 meq PO DAILY 07/01/19 Propranolol HCl 10 mg PO TID 07/01/19 Ranitidine HCl [Zantac] 150 mg PO BID 07/01/19 Rifaximin [Xifaxan] 550 mg PO BID 07/01/19 Thiamine HCl [Vitamin B-1] 100 mg PO DAILY 07/01/19 - AMA Did Patient Leave Against Medical Advice: Yes
[2019-07-05] MEDS ORDERED: LORazepam 0.5 MG TABLET PO ONE (05:00)
== END 2019-07-04 11:37 | disposition left against medical advice (07) | DRG 770 ==
LOC: YASAS 14:56 → Y6N 19:36
PROVIDERS: ADMIT Allergy & Immunology; ATTEND Allergy & Immunology
PROC: HZ2ZZZZ Detoxification Services for Substance Abuse Treatment (ICD-10-PCS; principal; 2019-07-01)
DX: F10.230 Alcohol dependence with withdrawal, uncomplicated (principal); F10.280 Alcohol dependence with alcohol-induced anxiety disorder; F10.282 Alcohol dependence with alcohol-induced sleep disorder; F17.210 Nicotine dependence, cigarettes, uncomplicated; F25.9 Schizoaffective disorder, unspecified; F20.0 Paranoid schizophrenia; F31.9 Bipolar disorder, unspecified; I10 Essential (primary) hypertension; E11.42 Type 2 diabetes mellitus with diabetic polyneuropathy; Z79.4 Long term (current) use of insulin; K74.60 Unspecified cirrhosis of liver; Z87.19 Personal history of other diseases of the digestive system; Z91.5 Personal history of self-harm
CPT/HCPCS: 36415; 80053; 80178; 82962; 85025; 85027; 86593; 93005; 93010